=== PATIENT | male | born 1960 | race Caucasian/White ===

== ENCOUNTER 2024-02-09 08:19 | Outpatient (CLI) | payer SELFPAY ==
--- NOTE | ~2024-02-09 | CT_ITS ---
EXAMINATION: CT sinus wo con DATE: 02/09/2024 08:48 INDICATION: Nasal congestion. Sinus pressure. TECHNIQUE: Computed tomography (CT) of the paranasal sinuses was performed without intravenous contra st. Iterative reconstruction technique was employed. The dose-length product was 390.41 mGy-cm. COMPARISON: CT abdomen and pelvis 06/14/14 FINDINGS: There is complete opacification of the frontal and ethmoid sinuses and near complete opacif ication of the sphenoid and maxillary sinuses. There is thickening and sclerosis of the sinus guerrero, consistent with chronic sinusitis. There is mucosal thickening in the nasal cavity. The ostiomeatal u nits are occluded. There is rightward deviation of anterior nasal septum and leftward deviation of po sterior nasal septum. IMPRESSION: 1. Chronic pansinusitis. 2. Rightward deviation of anterior nasal septum and leftward deviation of posterior nasal septum. Reviewed, dictated and finalized at location A. TER CIVIL IMPRESSION: 1. Chronic pansinusitis. 2. Rightward deviation of anterior nasal septum and leftward deviation of poste rior nasal septum.
== END 2024-02-09 08:20 | disposition home or self-care (01) ==
PROVIDERS: PCP Family Medicine
DX: R09.81 Nasal congestion (principal); J34.2 Deviated nasal septum
CPT/HCPCS: 70486

== ENCOUNTER 2024-05-27 08:19 | Outpatient (CLI) | payer BC, SELFPAY ==
[2024-05-27 08:36] LABS: Estimated Glomerular Filt Rate > 60
== END 2024-05-27 08:20 | disposition home or self-care (01) ==
LOC: GOSHIMG 08:20
DX: D17.0 Benign lipomatous neoplasm of skin and subcutaneous tissue of head, face and neck (principal); J32.9 Chronic sinusitis, unspecified
CPT/HCPCS: 70491; Q9967